=== PATIENT | male | born 1990 | race Caucasian/White ===

== ENCOUNTER 2020-04-26 09:00 | Outpatient (RCR) | payer OTHER | END 2020-05-02 | LOC: OT 09:00 | PROVIDERS: ATTEND Orthopaedic Surgery Hand Surgery | DX: S63.511A Sprain of carpal joint of right wrist, initial encounter (principal); M93.1 Kienbock's disease of adults ==

== ENCOUNTER 2020-05-26 09:00 | Outpatient (RCR) | payer OTHER | END 2020-06-02 | LOC: OT 09:00 | PROVIDERS: ATTEND Orthopaedic Surgery Hand Surgery | DX: S63.511A Sprain of carpal joint of right wrist, initial encounter (principal); M93.1 Kienbock's disease of adults ==